=== PATIENT | female | born 1995 | race Two or more races ===

== ENCOUNTER 2018-10-09 19:36 | Emergency (ER) | payer BC ==
[~2018-10-09] VITALS: Ht 167.6 cm; Wt 59.0 kg
[2018-10-09] MEDS ORDERED: IBUPROFEN 600MG TABLET PO ONE (20:45)
[2018-10-09] MEDS ORDERED: LORAZEPAM 1MG TABLET PO ONE (20:45)
[2018-10-09 21:31] VITALS: BP 109/75
== END 2018-10-09 22:08 | disposition home or self-care (01) ==
LOC: ER 19:36
DX: F41.9 Anxiety disorder, unspecified (principal)
CPT/HCPCS: 71045; 93005; 99284

== ENCOUNTER 2021-02-10 03:17 | Emergency (ER) | payer SELFPAY ==
[~2021-02-10] VITALS: Ht 154.9 cm; Wt 66.0 kg
[2021-02-10 03:45] VITALS: BP 126/74
== END 2021-02-10 04:09 | disposition home or self-care (01) ==
LOC: ER 03:17
DX: F41.9 Anxiety disorder, unspecified (principal)
CPT/HCPCS: 99283

== ENCOUNTER 2023-07-12 21:21 | Emergency (ER) | payer MEDICAID ==
[~2023-07-12] VITALS: Ht 165.1 cm; Wt 65.0 kg
[2023-07-12 21:26] VITALS: O2SAT 100
[2023-07-12] MEDS ORDERED: DIAZEPAM 5 MG TABLET PO ONE (21:45)
[2023-07-12] MEDS: DIAZEPAM 5 MG TABLET PO NR ×2 (22:39→22:40)
[2023-07-13 01:57] VITALS: BP 101/64; PULSE 77; RESP 17; TEMP 98.5
== END 2023-07-13 01:58 | disposition home or self-care (01) ==
LOC: ER 21:21
DX: F41.9 Anxiety disorder, unspecified (principal)
CPT/HCPCS: 93005; 99283